=== PATIENT | male | born 1980 | race Caucasian/White ===

== ENCOUNTER 2020-06-15 21:51 | Emergency (ER) | payer MEDICAID ==
[~2020-06-15] VITALS: Ht 193 cm; Wt 100.0 kg
--- NOTE | 2020-06-15 22:13 | NUR ---
patient resting in bed tearful and flat affected, withdrawn, repeating "i just dont care anymore". in NAD. call ramirez in reach. denies SI or any plan to hurt himself just keeps repeating he doesnt care. patient denies any past attempts to hurt himself intentionally. also states he takes a anti-depressant but doesnt know name
[2020-06-15 22:35] LABS: BASOPHILS % (AUTO) 1 % (0-1); EOSINOPHILS % (AUTO) 1 % (1-7); LYMPHOCYTES % (AUTO) 9 % (22-44); MEAN CORPUSCULAR HEMOGLOBIN 32.6 pg (27.5-34.5); MEAN CORPUSCULAR HGB CONC 33.8 g/dL (33.2-36.2); MEAN PLATELET VOLUME 8.5 fL (7.4-10.4); MONOCYTES % (AUTO) 4 % (2-9); NEUTROPHILS % (AUTO) 85 % (42-75); PLATELET COUNT 237 x10^3/uL (130-400); RED BLOOD COUNT 4.75 x10^6/uL (4.38-5.82); RED CELL DISTRIBUTION WIDTH 15.1 % (9.4-14.8)
[2020-06-15 22:36] LABS: MD NO
[2020-06-15 22:48] LABS: ALBUMIN 3.8 g/dL (3.4-5.0); ANION GAP 4 mmol/L (5-15); CALCIUM 8.8 mg/dL (8.5-10.1); CHLORIDE 109 mmol/L (98-107)
[2020-06-15 22:51] LABS: ALANINE AMINOTRANSFERASE 23 U/L (12-78); ALKALINE PHOSPHATASE 98 U/L (45-117); BILIRUBIN,TOTAL 0.4 mg/dL (0.2-1.0); CREATININE 0.82 mg/dL (0.7-1.3); TOTAL PROTEIN 7.5 g/dL (6.4-8.2)
--- NOTE | 2020-06-15 23:06 | NUR ---
I have requested from patient multiple times for urine sample. patient is found to be resting in bed with eyes closed or states he will and when RN re-assesses patient is found in position with eyes closed in bed. in NAD. will continue to monitor and assess
--- NOTE | 2020-06-15 23:22 | NUR ---
patient stood at bedside with standby assist. patient was slightly unbalanced when getting back into bed. in NAD.will continue to monitor.
[2020-06-15 23:35] LABS: AMPHETAMINE SCREEN, URINE Negative (Negative); BARBITURATE SCREEN, URINE Negative (Negative); BENZODIAZEPINE SCREEN, URINE Negative (Negative); CANNABINOID SCREEN, URINE Positive (Negative); COCAINE SCREEN, URINE Negative (Negative); METHADONE SCREEN, URINE Negative (Negative); OPIATE SCREEN, URINE Negative (Negative)
--- NOTE | 2020-06-16 00:08 | NUR ---
patrica mckay, patient's gf, called to check on patient. she requested a call back when he was ready for discharge. patient gave me verbal consent to update her. patient resting in bed. will attempt to ambulate him again soon to assess balance and mobility. VS remain stable
--- NOTE | 2020-06-16 01:06 | NUR ---
discharge instructions reviewed with patient. emphasized education reviewed on alcohol and smoking cessation. pamphlets for outpatient psych/behavioral resources provided as well as shelters and substance abuse/addiction treatment. all personal belongings with patient. I ambulated patient x2 and second time around patient had steady gait and me and patient agreed that he was stable and steady enough to be dc'd. no IV placed on this ER visit. s/o patriac called by RN and she states she should be here in 10-15 minutes. in NAD.
[2020-06-16 01:13] VITALS: BP 111/55
== END 2020-06-16 01:27 | disposition home or self-care (01) ==
LOC: ED 06-16 01:00
DX: F10.229 Alcohol dependence with intoxication, unspecified (principal); M50.30 Other cervical disc degeneration, unspecified cervical region; F17.210 Nicotine dependence, cigarettes, uncomplicated; Y90.9 Presence of alcohol in blood, level not specified
CPT/HCPCS: 36415; 70450; 72125; 80053; 80299; 80307; 80320; 80329; 85025; 93005; 99285; 99406; G0480